=== PATIENT | male | born 2000 | race Caucasian/White ===

== ENCOUNTER 2022-11-06 12:16 | Outpatient (OUT) | payer BC, SELFPAY ==
[2022-11-07 10:20] LABS: Hgb Solubility Negative (Negative)
== END 2022-11-06 12:17 | disposition home or self-care (01) ==
LOC: LAB 12:24
PROVIDERS: Family Provider Family Medicine; PCP Family Medicine; Visit Provider Family Medicine
DX: Z00.00 Encounter for general adult medical examination without abnormal findings (principal)
CPT/HCPCS: 36415; 85660